=== PATIENT | male | born 1945 | race Caucasian/White ===

== ENCOUNTER 2018-09-27 19:17 | Inpatient (IN) | payer MEDICARE, MEDICAID ==
[~2018-09-27] VITALS: Ht 182.9 cm; Wt 61.2 kg
[~2018-09-27 19:17] MED LIST: AMLO5TAB4 PO; BENA10TA PO; CHLO500T3 PO; DUTA0.5C PO; FINA5TAB3 PO; HYDR-4354 PO; LEVO112T5 PO; METO50TA PO; TAMS-3 PO
--- NOTE | 2018-09-27 19:40 | NUR ---
Pt. BIB EMS from [facility] for Medical Clearance to admit to [facility], pt. on 5150 for GD
[2018-09-27] MEDS ORDERED: OXYBUTYNIN PO (19:49)
[2018-09-27] MEDS ORDERED: PROPECIA (19:49)
[2018-09-27] MEDS ORDERED: ATIVAN (19:49)
[2018-09-27] MEDS ORDERED: TAMS-3 PO (19:58)
--- NOTE | 2018-09-27 20:00 | NUR ---
PATIENT IS MEDICALLY CLEARED BY DR GARCIA.
--- NOTE | 2018-09-27 20:40 | NUR ---
ADMISSION NOTE: Received 73 y.o male brought in by ambulance from [facility]. He was found in the back of a convenient store covered will feces. Medically cleared from ER. On a 72 hour hold for [facility]. He is disheveled, unkempt and foul smelling. When seated on the chair he has this repetitive movement, back and forth. It appears to be involuntary. A/O x 2. When if he could tell me where he is at, he states, "I know where I am, Do you"? When asked do you know why you are here? He states "I know why I am here, Do you"? correction assessment done. Unsteady gait. Walks with a cane. Skin is intact. No open wounds. Vital signs stable. Went over belongings list. Oriented patient to the unit and room. However, patient is unable to sign. Safety initiated. Bed in low and locked position. Bed alarm on. Will monitor closely.
[2018-09-27] MEDS ORDERED: ACETAMINOPHEN 325 MG TABLET PO PRN (20:45)
[2018-09-27] MEDS ORDERED: LORAZEPAM 1 MG TABLET PO PRN (20:45)
[2018-09-27] MEDS ORDERED: TEMAZEPAM 7.5 MG CAPSULE PO PRN (20:45)
[2018-09-27] MEDS ORDERED: MAGNESIUM HYDROXIDE 30 ML LIQUID UDC PO PRN (20:45)
[2018-09-27] MEDS ORDERED: MAG HYDROX/AL HYDROX/SIMETH 30 ML LIQUID UDC PO PRN (20:45)
--- NOTE | 2018-09-27 21:00 | NUR ---
Pt. transferred off unit to admit to MHU via wheelchair by ELISEO Feliciano, all belongings and chart w/ pt.,
[2018-09-27] MEDS ORDERED: LOPERAMIDE HCL 2 MG CAPSULE PO PRN (21:30)
[2018-09-27] MEDS: NICOTINE 14 MG/24HR PATCH TD SCH (21:30)
--- NOTE | 2018-09-28 05:36 | NUR ---
Patient was calm and cooperative t/o shift. Vital signs stable. Med compliant. Slept t/o shift. No behavioral issues. All needs met.
[2018-09-28 07:05] LABS: BASOPHILS % (AUTO) 0.1 % (0.0-2.0); EOSINOPHILS # (AUTO) 0.1 K/uL (0.0-0.7); EOSINOPHILS % (AUTO) 1.4 % (0.0-7.0); HEMATOCRIT 34.2 % (36.7-47.1); HEMOGLOBIN 11.9 g/dL (12.5-16.3); LYMPHOCYTES # (AUTO) 1.1 K/uL (20.0-40.0); LYMPHOCYTES % (AUTO) 11.5 % (20.5-51.5); MEAN CORPUSCULAR HGB CONC 35 g/dL (32.5-36.3); MEAN CORPUSCULAR VOLUME 89.3 fL (73.0-96.2); MONOCYTES # (AUTO) 0.9 K/uL (2.0-10.0); MONOCYTES % (AUTO) 9.5 % (0.0-11.0); NEUTROPHILS # (AUTO) 7.7 K/uL (1.8-8.9); NEUTROPHILS % (AUTO) 77.5 % (38.5-71.5); PLATELET COUNT (AUTO) 329 K/uL (152-348); RED BLOOD CELL COUNT(AUTO) 3.83 MIL/uL (4.06-5.63); WHITE BLOOD COUNT (AUTO) 9.9 K/uL (3.6-10.2)
[2018-09-28 07:17] LABS: ALANINE AMINOTRANSFERASE 12 U/L (16-63); ALKALINE PHOSPHATASE 75 U/L (50-136); ASPARTATE AMINOTRANSFERASE < 5 U/L (15-37); BILIRUBIN,TOTAL 0.3 mg/dL (0.2-1.0); CARBON DIOXIDE 30 mmol/L (21-32); CHLORIDE 103 mmol/L (98-107); CHOLESTEROL 122 mg/dL (<200); CREATININE 0.9 mg/dL (0.6-1.3); GLUCOSE 91 mg/dL (74-106); HDL CHOLESTEROL 42 mg/dL (40-60); POTASSIUM 3.5 mmol/L (3.5-5.1); TRIGLYCERIDES 110 MG/DL (30-150); UREA NITROGEN, BLOOD 20 mg/dL (7-18)
[2018-09-28 07:24] LABS: THYROID STIMULATING HORMONE 29.186 mIU/mL (0.358-3.740)
[2018-09-28 07:30] VITALS: BP 116/61
[2018-09-28] MEDS: METOPROLOL TARTRATE 50 MG TABLET PO SCH ×2 (08:24→16:47)
[2018-09-28] MEDS: AMLODIPINE 5 MG TABLET PO SCH (08:25)
[2018-09-28] MEDS: NICOTINE 14 MG/24HR PATCH TD SCH (08:25)
[2018-09-28] MEDS: TAMSULOSIN HCL 0.4 MG CAP.SR.24H PO SCH ×2 (08:25→16:47)
[2018-09-28] MEDS: LEVOTHYROXINE SODIUM 112 MCG TABLET PO SCH (09:16)
[2018-09-28] MEDS: MULTIVITAMINS,THERAPEUTIC TABLET PO SCH (12:17)
[2018-09-28 12:21] LABS: ETHANOL < 3 MG/DL (0-0)
[2018-09-28 16:44] VITALS: BP 117/73
--- NOTE | 2018-09-28 18:47 | NUR ---
patient remained in bed through out the day. Patient is compliant with medication and medical treatment. patient is alert or oriented x1. Patient is able to verbalize needs. patients needs have been met. Patient will be continues to be monitored and plan of care will be endorsed to shift coordinator.
[2018-09-28 20:12] VITALS: BP 109/52
--- NOTE | 2018-09-29 06:18 | NUR ---
GPS: Patient was calm and cooperative with medications and care. slept 8:30 hrs through the shift. No behavioral issues. All needs met. continue plan of care.
[2018-09-29] MEDS: LEVOTHYROXINE SODIUM 112 MCG TABLET PO SCH (06:40)
[2018-09-29 07:30] VITALS: BP 132/79
[2018-09-29] MEDS: MULTIVITAMINS,THERAPEUTIC TABLET PO SCH (08:23)
[2018-09-29] MEDS: NICOTINE 14 MG/24HR PATCH TD SCH (08:24)
[2018-09-29] MEDS: TAMSULOSIN HCL 0.4 MG CAP.SR.24H PO SCH ×2 (08:24→17:11)
[2018-09-29] MEDS: METOPROLOL TARTRATE 50 MG TABLET PO SCH ×2 (08:24→17:00)
[2018-09-29] MEDS: risperiDONE 0.5 MG TABLET PO SCH ×2 (08:24→20:28)
[2018-09-29] MEDS: AMLODIPINE 5 MG TABLET PO SCH (08:24)
[2018-09-29 13:41] LABS: *BILIRUBIN,URIN NEGATIVE (NEGATIVE); *BLOOD, URINE NEGATIVE (NEGATIVE); *CLARITY,URINE CLEAR (CLEAR); *COLOR,URINE YELLOW (YELLOW); *KETONES,URINE NEGATIVE (NEGATIVE); *UROBILINOGEN,URINE 0.2 E.U./dl (NORMAL); LEUKOCYTE ESTERASE ,URINE NEGATIVE (NEGATIVE); NITRITE, URINE NEGATIVE (NEGATIVE); UGLUCOSE NEGATIVE (NEGATIVE)
[2018-09-29 13:50] LABS: *AMPHETAMINE, URINE NEGATIVE (NEGATIVE); *BARBITURATE, URINE NEGATIVE (NEGATIVE); *CANNABINOID, URINE NEGATIVE (NEGATIVE); *COCCAINE, URINE NEGATIVE (NEGATIVE); *OPIATE, URINE NEGATIVE (NEGATIVE); *PHENCYCLIDINE SCREEN,URINE NEGATIVE (NEGATIVE)
[2018-09-29 13:53] LABS: BACTERIA,URINE NONE SEEN /HPF (NONE SEEN); CALCIUM OXALATE CRYSTALS,UR FEW /HPF (NONE SEEN); RBC,URINE 0-3 /HPF (0-3); SQUAMOUS EPITHELIAL CELL,UR FEW /HPF (NONE SEEN); WBC,URINE 0-3 /HPF (0-3)
[2018-09-29 17:20] VITALS: BP 93/50
--- NOTE | 2018-09-29 18:38 | NUR ---
GPS: patient remain in bed through out the day, Patient was able to work with PT today and tolerated it well. patient is compliant with medication. Patients has episodes of anxiety and aggression. Will continue to monitor closely.
[2018-09-29 20:34] VITALS: BP 104/63
--- NOTE | 2018-09-30 06:14 | NUR ---
Remain calm and cooperative with medications and care. slept 9 hrs through the night. took shower this morning. continue plan of care.
[2018-09-30] MEDS: LEVOTHYROXINE SODIUM 112 MCG TABLET PO SCH (06:35)
[2018-09-30 07:30] VITALS: BP 116/67
[2018-09-30] MEDS: AMLODIPINE 5 MG TABLET PO SCH (08:49)
[2018-09-30] MEDS: MULTIVITAMINS,THERAPEUTIC TABLET PO SCH (08:50)
[2018-09-30] MEDS: risperiDONE 0.5 MG TABLET PO SCH ×2 (08:50→20:35)
[2018-09-30] MEDS: TAMSULOSIN HCL 0.4 MG CAP.SR.24H PO SCH ×2 (08:50→16:51)
[2018-09-30] MEDS: METOPROLOL TARTRATE 50 MG TABLET PO SCH ×2 (08:50→16:51)
[2018-09-30] MEDS: NICOTINE 14 MG/24HR PATCH TD SCH (09:29)
--- NOTE | 2018-09-30 12:23 | NUR ---
Initial Discharge Plan: Patient is a 73 year old male who is currently homeless. Patient has no family or friends to contact. Patient states he is open to shelter placement. box storage worker will continue to collaborate with patient and MD on a safe and proper discharge.
[2018-09-30 15:29] VITALS: BP 87/55
--- NOTE | 2018-09-30 18:35 | NUR ---
PT AGITATED AT THIS TIME BECAUSE HE IS HUNGRY, UNABLE TO CHEW, NO DENTURES. COOPERATIVE WITH MEDS. NO C/O PAIN. STAYS MOSTLY IN BED. USES WALKER TO AMBULATE. WILL CONT TO MONITOR.
--- NOTE | 2018-10-01 06:27 | NUR ---
GPS: Patient was calm and cooperative with medications and care. slept 5:30 hrs through the shift. No behavioral issues. All needs met. continue plan of care.
[2018-10-01] MEDS: LEVOTHYROXINE SODIUM 112 MCG TABLET PO SCH (06:38)
[2018-10-01 07:30] VITALS: BP 113/61
[2018-10-01] MEDS: TAMSULOSIN HCL 0.4 MG CAP.SR.24H PO SCH ×2 (08:40→17:09)
[2018-10-01] MEDS: risperiDONE 0.5 MG TABLET PO SCH ×2 (08:40→20:25)
[2018-10-01] MEDS: AMLODIPINE 5 MG TABLET PO SCH (08:40)
[2018-10-01] MEDS: NICOTINE 14 MG/24HR PATCH TD SCH (08:41)
[2018-10-01] MEDS: METOPROLOL TARTRATE 50 MG TABLET PO SCH ×2 (08:41→17:10)
[2018-10-01] MEDS: MULTIVITAMINS,THERAPEUTIC TABLET PO SCH (08:43)
--- NOTE | 2018-10-01 16:17 | NUR ---
Patient continue on behavioral monitoring. no behavior problem noted. not in distress.will continue monitor
[2018-10-01 16:55] VITALS: BP 114/67
[2018-10-01 22:22] VITALS: BP 107/66
--- NOTE | 2018-10-02 05:56 | NUR ---
GPS: Remain calm and cooperative with medications and care. slept 6 hrs through the night. no agitation noted. continue plan of care.
[2018-10-02] MEDS: LEVOTHYROXINE SODIUM 112 MCG TABLET PO SCH (06:32)
[2018-10-02 07:30] VITALS: BP 125/85
[2018-10-02] MEDS: risperiDONE 1 MG TABLET PO SCH ×2 (08:02→21:22)
[2018-10-02] MEDS: NICOTINE 14 MG/24HR PATCH TD SCH (08:02)
[2018-10-02] MEDS: TAMSULOSIN HCL 0.4 MG CAP.SR.24H PO SCH ×2 (08:02→17:19)
[2018-10-02] MEDS: MULTIVITAMINS,THERAPEUTIC TABLET PO SCH (08:02)
[2018-10-02] MEDS: AMLODIPINE 5 MG TABLET PO SCH (08:29)
[2018-10-02] MEDS: METOPROLOL TARTRATE 50 MG TABLET PO SCH (08:56)
--- NOTE | 2018-10-02 15:57 | NUR ---
GROUP NOTE: Group topic was focused on how to talk with your doctor and advocate for yourself Subjective: "I will not go to group until I am shaved." Objective: Patient expressed interest in attending group and appeared to be walking down hallway toward group meeting. Patient was then seen to go back into room and sit on his bed. Assessment: Patient presented with irritable mood and garbled, rambling speech. Plan: icebox worker will continue to encourage group attendance as scheduled. icebox worker will continue to provide support to the patient to encourage participation.
[2018-10-02 16:00] VITALS: BP 105/59
--- NOTE | 2018-10-02 17:09 | NUR ---
Discharge Planning: Patient has been accepted to [facility] [[address], [place] [address] ].
--- NOTE | 2018-10-02 18:12 | NUR ---
patient is alert and oriented x1. patient has garbling speech. Patient took a shower and shaved. Patient remains in bed and is compliant with all medications and medical treatment. Patient worked with PT today and tolerated well. patient is able to verbalize needs and needs have been met.
[2018-10-02] MEDS: METOPROLOL TARTRATE 25 MG TABLET PO SCH (21:00)
[2018-10-02 21:39] VITALS: BP 118/67
--- NOTE | 2018-10-03 05:43 | NUR ---
Patient is alert and oriented x1 and denies any pain or discomfort at this time. Able to make needs known. Has a good appetite. Patient is compliant with all medications and medical treatments. Medication given as ordered. Safety measures maintained. Will continue to monitor and endorse plan of care to oncoming nurse.
[2018-10-03] MEDS: LEVOTHYROXINE SODIUM 112 MCG TABLET PO SCH (06:38)
[2018-10-03 07:30] VITALS: BP 138/81
[2018-10-03] MEDS: MULTIVITAMINS,THERAPEUTIC TABLET PO SCH (08:58)
[2018-10-03] MEDS: AMLODIPINE 5 MG TABLET PO SCH (08:58)
[2018-10-03] MEDS: TAMSULOSIN HCL 0.4 MG CAP.SR.24H PO SCH ×2 (08:58→17:24)
[2018-10-03] MEDS: METOPROLOL TARTRATE 25 MG TABLET PO SCH (08:59)
[2018-10-03] MEDS: risperiDONE 1 MG TABLET PO SCH (08:59)
[2018-10-03] MEDS: NICOTINE 14 MG/24HR PATCH TD SCH (09:00)
--- NOTE | 2018-10-03 14:34 | NUR ---
DISCHARGE NOTE: Patient is homeless and will be discharged to [facility] [[address], [place] [address]; ] and transportation will be provided by ambulance at 4:00pm. Please arrange ambulance transportation for this patient. renal social worker has spoken with Monica, patient financial services coordinator at the facility, who states that they are ready to accept the patient today. Patient is alert and oriented x2-3, denies SI/HI, and is aware and agreeable with discharge plans. Patient has no next of kin to notify at this time. Patient will follow-up with Dr. Busby (occupational health nursing director) and Dr. Gann (psychiatrist) at the facility. Patient has been provided with outpatient mental health resources to [facility] [ ], [facility] [ ], and the National Suicide Prevention Lifeline [ ]. Patient has also been provided with homeless resources including winter nursing home locations, shower and hot meal locations, food pantries, mental health and substance abuse clinics [see chart for resources provided]. Patient has been provided with clothing including pants and long sleeve shirt. Patient has signed homeless consent form and a copy has been placed in patient chart.
--- NOTE | 2018-10-03 15:00 | NUR ---
Firearms Report: public health outreach worker completed and submitted a [employer] firearms report for a 5250 GD certification.
[2018-10-03 16:00] VITALS: BP 110/62
--- NOTE | 2018-10-03 17:40 | NUR ---
1620 Called in report to [facility], spoke with REGINA Martinez who will be admitting the patient. REGINA informed regarding patient mental and medical status of the patient, medications to continue upon hospital discharge. 1730 Patientischarge to facility mentioned above via ambulance stable condition, denies SI/HI . No delusions. No a/v hallucination noted. All belongings returned and signed.
== END 2018-10-03 18:08 | DRG 885 ==
LOC: ER 19:19 → GPS 20:21
PROVIDERS: ADMIT Psychiatry & Neurology Psychiatry; ATTEND Nurse Practitioner Acute Care
DX: F29 Unspecified psychosis not due to a substance or known physiological condition (principal); E44.0 Moderate protein-calorie malnutrition; Z68.1 Body mass index [BMI] 19.9 or less, adult; Z59.0 Homelessness; E03.9 Hypothyroidism, unspecified; N40.0 Benign prostatic hyperplasia without lower urinary tract symptoms; F17.210 Nicotine dependence, cigarettes, uncomplicated; Z79.899 Other long term (current) drug therapy; M41.9 Scoliosis, unspecified; M19.90 Unspecified osteoarthritis, unspecified site; E86.0 Dehydration; D63.8 Anemia in other chronic diseases classified elsewhere; R25.1 Tremor, unspecified; I10 Essential (primary) hypertension; I45.10 Unspecified right bundle-branch block; Z79.890 Hormone replacement therapy
CPT/HCPCS: 36415; 71045; 80307; 84443; 85025; 93005; 97110; 97116; 97530; A4663; G0480